=== PATIENT | female | born 1950 | race American Indian/Alaskan Native ===

== ENCOUNTER 2017-03-04 10:41 | Outpatient (CLI) | payer BC ==
--- NOTE | 2017-03-09 12:15 | Magnetic Resonance Report ---
BILATERAL BREAST MRI WITHOUT AND WITH CONTRAST: 03/04/17 10:41:00 CLINICAL: History of breast cancer status post left partial mastectomy for infiltrating ductal carcinoma. Recent abnormal mammogram. COMPARISON:02/05/17 and 02/12/17 mammograms. TECHNIQUE: Axial 1.0-mm T1 without, axial high resolution 2.0-mm T2 and axial 1.0-mm dynamic Vibrant high-resolution postcontrast T1 fat saturation sequences on a 1.5 Riri magnet. The examination was performed with an 8 channel dedicated [place] breast coil. Post processing with CAD and subtraction was performed on an [employer] workstation. 17.0 cc of Multihance was injected without incident via a right antecubital vein 22-gauge INT for the contrast portion of the exam. Consent was obtained prior to the administration of the contrast. FINDINGS: Right: Minimal background parenchymal enhancement. No mass or suspicious enhancement. No suspicious lymph nodes. Left: Minimal background parenchymal enhancement. Normal postsurgical scar in the lower outer quadrant. 2 oval slightly irregular masses at the inframammary fold correlate with recently identified mammographic asymmetries. The larger of the 2 measures 8 x 5 x 7 mm. The smaller measures 7 x 4 x 5 mm. The masses are hypointense to fat on both T1 and T2 and demonstrate minimal enhancement. IMPRESSION: Two left breast masses which correlate with recent mammographic asymmetries. Recommend MRI guided needle biopsy to exclude malignancy. RIGHT BI-RADS 1 -- Negative LEFT BI-RADS 4 -- Suspicious
== END 2017-03-04 10:42 | disposition home or self-care (01) ==
LOC: SPVWC 10:41
PROVIDERS: ATTEND Surgery
DX: C50.312 Malignant neoplasm of lower-inner quadrant of left female breast (principal); Z90.12 Acquired absence of left breast and nipple
CPT/HCPCS: A9577; C8908; 77059